=== PATIENT | female | born 2000 | race Caucasian/White ===

== ENCOUNTER 2019-09-14 14:28 | Emergency (ER) | payer BC, MEDICAID ==
[2019-09-14] MEDS ORDERED: Ketorolac 15 MG/ML SDV IVPUSH ONE (15:54)
[2019-09-14] MEDS ORDERED: Prochlorperazine 10 MG/2 ML SDV IVPUSH ONE (15:54)
--- NOTE | 2019-09-14 15:58 | EDM.PDOC ---
ED [facility] GENERAL MEDICAL PROBLEM - General Chief Complaint: Abdominal Pain Stated Complaint: ABDOMINAL PAIN Time Seen by Provider: 09/14/19 15:00 - History of Present Illness INITIAL COMMENTS - FREE TEXT/NARRATIVE: HISTORY AND PHYSICAL: History of present illness: This 19-year-old female with a history of polycystic ovarian syndrome, BMI greater than 35, presents emergency department complaining of left upper quadrant and left lower quadrant pain. States that this began around 8 AM today. Her periods are very irregular secondary to her polycystic ovarian syndrome, she does not remember the last time that she had one, she has not had any urinary symptoms, fever or diarrhea. She reports normal bowel movements previously. Nothing really makes this worse. Nothing really makes it better. Mild intermittent nausea when the pain comes. No other associated signs or symptoms. No other modifying, aggravating or alleviating factors. Review of systems: A 10-point review of systems, other than pertinent positives and negatives as stated per HPI, is otherwise negative. Past medical history: As per history of present illness and as reviewed below otherwise noncontributory. Surgical history: As per history of present illness and as reviewed below otherwise noncontributory. Social history: No reported history of drug or alcohol abuse. Family history: As per history of present illness and as reviewed below otherwise noncontributory. Physical exam: VITAL SIGNS: Reviewed. GENERAL: Pain. Mild distress. HEAD: No signs of head trauma. EYES: Pupils are equal. Extraocular motions intact. EARS: Hearing grossly intact. MOUTH: Oropharynx is normal. NECK: No adenopathy, no JVD. CHEST: Chest with clear breath sounds bilaterally. No wheezes, rales, or rhonchi. CARDIAC: Regular rate and rhythm. Normal S1 and S2, without murmurs, gallops, or rubs. VASCULAR: Peripheral pulses normal and equal in all extremities. ABDOMEN: Soft, mild left upper quadrant and left lower quadrant tenderness, no rebound or guarding, no CVA tenderness, bowel sounds present MUSCULOSKELETAL: Good range of motion of all major joints. Extremities without clubbing, cyanosis or edema. NEUROLOGIC EXAM: Alert and oriented x 3. No focal sensory or motor deficits. Speech normal. Follows commands. PSYCHIATRIC: Mood normal. SKIN: No rash or lesions. Initial Differential Diagnosis & Plan: The differential diagnosis would include appendicitis, cholecystitis, pyelonephritis, pancreatitis, mesenteric infarction, diverticulitis, small bowel obstruction, volvulus, and ACS. We will obtain a CT abdomen pelvis to look for atypical presentation of appendicitis, diverticulitis, and urolithiasis. The patient does not have high risk features for volvulus or acute coronary syndrome. I doubt pancreatitis. The patient does have polycystic ovarian syndrome and is at risk for ovarian rupture. She does not have peritoneal signs, significantly abnormal vital signs , or other signs of acute intra-pelvic or abdominal hemorrhage. I doubt torsion as the patient is relatively comfortable sitting in bed. Definitive disposition and diagnosis as appropriate pending reevaluation and review of above. left lower quadrant Pain Score (Numeric/FACES): 8 - Related Data Allergies Allergy/AdvReac Type Severity Reaction Status Date / Time No Known Allergies Allergy Verified 12/24/14 19:53 Home Meds: Home Meds . [No Known Home Meds] 12/24/14 [History] Past Medical History - Past Health History Medical/Surgical History: Denies Medical/Surgical History Musculoskeletal History: Reports: None Neurological History: Reports: None Psychiatric History: Reports: Depression Endocrine/Metabolic History: Reports: None Hematologic History: Reports: None Oncologic (Cancer) History: Reports: None Dermatologic History: Reports: None Social & Family History - Family History Family Medical History: Noncontributory - Tobacco Use Smoking Status *Q: Never Smoker - Caffeine Use Caffeine Use: Reports: Soda - Recreational Drug Use Recreational Drug Use: No ED ROS GENERAL - Review of Systems Review Of Systems: See Below (noted) ED EXAM, GI/ABD - Physical Exam Exam: See Below (noted) Course - Vital Signs Last Recorded V/S: Last Vital Signs Temp 96.7 F L 09/14/19 14:46 Pulse 73 09/14/19 17:18 Resp 18 09/14/19 14:46 BP 124/69 09/14/19 17:18 Pulse Ox 94 L 09/14/19 17:18 - Orders/Labs/Meds Orders: Active Orders 24 hr Category Date Time Status CULTURE URINE [RM] Stat Lab 09/14/19 16:09 Received Labs: Laboratory Tests 09/14/19 09/14/19 09/14/19 Range/Units 16:07 16:07 16:09 WBC 8.87 (4.0-11.0) K/uL RBC 4.32 (4.30-5.90) M/uL Hgb 12.7 (12.0-16.0) g/dL Hct 39.0 (36.0-46.0) % MCV 90.3 (80.0-98.0) fL MCH 29.4 (27.0-32.0) pg MCHC 32.6 (31.0-37.0) g/dL RDW Std Deviation 42.7 (28.0-62.0) fl RDW Coeff of Faith 13 (11.0-15.0) % Plt Count 327 (150-400) K/uL MPV 9.40 (7.40-12.00) fL Neut % (Auto) 71.8 (48.0-80.0) % Lymph % (Auto) 21.3 (16.0-40.0) % [place] % (Auto) 6.4 (0.0-15.0) % Eos % (Auto) 0.3 (0.0-7.0) % Baso % (Auto) 0.2 (0.0-1.5) % Neut # (Auto) 6.4 H (1.4-5.7) K/uL Lymph # (Auto) 1.9 (0.6-2.4) K/uL [place] # (Auto) 0.6 (0.0-0.8) K/uL Eos # (Auto) 0.0 (0.0-0.7) K/uL Baso # (Auto) 0.0 (0.0-0.1) K/uL Nucleated RBC % 0.0 /100WBC Nucleated RBCs # 0 K/uL Sodium 140 (136-145) mmol/L Potassium 3.6 (3.5-5.1) mmol/L Chloride 102 (98-107) mmol/L Carbon Dioxide 28.9 (21.0-32.0) mmol/L BUN 18 (7.0-18.0) mg/dL Creatinine 0.8 (0.6-1.0) mg/dL Est Cr Clr Drug Dosing 80.57 mL/min Estimated GFR (MDRD) > 60.0 ml/min Glucose 92 (74-106) mg/dL Calcium 9.1 (8.5-10.1) mg/dL HCG, Quant 1.0 mIU/mL Urine Color BROWN Urine Appearance SLT CLOUDY Urine pH 6.0 (5.0-8.0) Ur Specific [place] >= 1.030 (1.001-1.035) Urine Protein 100 H (NEGATIVE) mg/dL Urine Glucose (UA) NEGATIVE (NEGATIVE) mg/dL Urine Ketones TRACE H (NEGATIVE) mg/dL Urine Occult Blood LARGE H (NEGATIVE) Urine Nitrite POSITIVE H (NEGATIVE) Urine Bilirubin SMALL H (NEGATIVE) Urine Ictotest NEGATIVE Urine Urobilinogen 1.0 (<2.0) EU/dL Ur Leukocyte Esterase NEGATIVE (NEGATIVE) Urine RBC TOO NUMEROUS TO CT H (0-2/HPF) Urine WBC 0-4 (0-5/HPF) Ur Epithelial Cells FEW (NONE-FEW) Urine Bacteria 2+ H (NEGATIVE) Meds: Medications Discontinued Medications Generic Name Dose Route Start Last Admin Trade Name Aleida PRN Reason Stop Dose Admin Ketorolac Tromethamine 15 mg 09/14/19 15:54 09/14/19 16:16 Toradol IVPUSH 09/14/19 15:55 15 mg ONETIME ONE Administration Prochlorperazine Edisylate 10 mg 09/14/19 15:54 09/14/19 16:16 Compazine IVPUSH 09/14/19 15:55 10 mg ONETIME ONE Administration - Re-Assessments/Exams Free Text/Narrative Re-Assessment/Exam: 09/15/19 10:38 Before the patient could get her results she eloped from the department. Review of her results shows no need for immediate call back to have the patient get any other required treatment. No significant anemia. CT is essentially normal. My diagnostic impression: 1. Abdominal and pelvic pain unclear etiology 2. Polycystic ovarian syndrome Departure - Departure Time of Disposition: 17:18 Disposition: Eloped 07 Clinical Impression: Abdominal pain - Discharge Information *PRESCRIPTION DRUG MONITORING PROGRAM REVIEWED*: Not Applicable *COPY OF PRESCRIPTION DRUG MONITORING REPORT IN PATIENT PELON: Not Applicable Instructions: Flank Pain, Adult, [id number] Referrals: Franc Ramirez MD [Primary Care Provider] - Forms: ED Department Discharge Sepsis Event Note - Evaluation Sepsis Screening Result: No Definite Risk - Focused Exam Date Exam was Performed: 09/15/19 Time Exam was Performed: 10:38 - My Orders Last 24 Hours: My Active Orders 09/14/19 16:09 CULTURE URINE [RM] Stat - Assessment/Plan Last 24 Hours: My Active Orders 09/14/19 16:09 CULTURE URINE [RM] Stat
[2019-09-14 16:54] LABS: BLOOD UREA NITROGEN,BUN 18 mg/dL (7.0-18.0); CARBON DIOXIDE,CO2 28.9 mmol/L (21.0-32.0); CHLORIDE,CL 102 mmol/L (98-107); GLUCOSE RANDOM 92 mg/dL (74-106); POTASSIUM,K 3.6 mmol/L (3.5-5.1); SODIUM,NA 140 mmol/L (136-145)
--- NOTE | 2019-09-14 17:27 | CT ---
CT abdomen and pelvis Technique: Multiple axial sections were obtained from above the dome of the diaphragm inferiorly through the pubic symphysis. Intravenous and oral contrast was not utilized. Study has been performed as a ureteral stone protocol. Findings: Nonobstructing calculus is noted within the lower left kidney measuring approximately 4 mm. No other abnormal calcifications are seen within the kidneys. Left ureter is mildly prominent. Calcification is noted within the distal left ureter measuring 3.1 mm. This calcification occurs approximately 3.8 cm proximal to the UVJ. No other ureteral calculi are seen. Left ureter is mildly prominent in size compatible with the obstructing calculus. Other findings: Visualized lung bases show nothing acute. Liver contains no focal abnormality. Spleen appears within normal limits. Adrenal glands show no nodule. Pancreas shows no discrete abnormality. Aorta shows no aneurysm. No retroperitoneal adenopathy or mesenteric abnormalities are seen. No pelvic mass or adenopathy is seen. Appendix is seen which is normal in size. No pelvic mass or adenopathy is noted. No free fluid or or inflammatory change is seen. Bone window settings were reviewed which shows no acute osseous finding. Impression: 1. Small nonobstructing calculus within the lower left kidney. 2. Mildly dilated left ureter caused by an obstructing 3.1 mm stone within the distal left ureter located approximately 3.8 cm from the UVJ. 3. No other acute finding is seen on noncontrast CT study of the abdomen and pelvis. Diagnostic code #3 This report was dictated in MDT
[2019-09-14 17:42] VITALS: BP 124/69; PULSE 73
== END 2019-09-14 15:40 | disposition left against medical advice (07) ==
LOC: MW.ED 14:28
DX: R10.12 Left upper quadrant pain (principal); R10.32 Left lower quadrant pain
CPT/HCPCS: 36415; 74176; 80048; 81001; 84702; 85025; 87086; 96374; 96375; 99284; J0780; J1885; 99282

== ENCOUNTER 2022-07-18 16:01 | Emergency (ER) | payer SELFPAY ==
[2022-07-18 16:27] VITALS: BP 135/94
[2022-07-18] MEDS ORDERED: Sodium Chloride 0.9% 2.5 ML Syringe FLUSH PRN (17:01)
[2022-07-18] MEDS ORDERED: Sodium Chloride 0.9% 10 ML Syringe FLUSH PRN (17:01)
[2022-07-18] MEDS ORDERED: Morphine 2 MG/ML SYRINGE IVPUSH STA (17:02)
[2022-07-18] MEDS ORDERED: Ondansetron 4 MG/2 ML SDV IVPUSH STA (17:02)
[2022-07-18] MEDS ORDERED: Sodium Chloride 0.9% 1,000 ML IV STA (17:02)
[2022-07-18 17:54] LABS: CARBON DIOXIDE,CO2 25.6 mmol/L (21.0-32.0); POTASSIUM,K 4.2 mmol/L (3.5-5.1)
[2022-07-18] MEDS ORDERED: cefTRIAXone 1 GM in Sodium Chloride 0.9% 50 ML IV STA (17:58)
[2022-07-18] MEDS ORDERED: Morphine 4 MG/ML Syringe IVPUSH STA (17:58)
[2022-07-18 18:49] VITALS: PULSE 77
== END 2022-07-18 18:48 | disposition home or self-care (01) ==
LOC: MW.ED 16:01
DX: N12 Tubulo-interstitial nephritis, not specified as acute or chronic (principal); Z72.0 Tobacco use
CPT/HCPCS: 36415; 80053; 81001; 81025; 83690; 85025; 87086; 96361; 96365; 96375; 96376; 99284; J0696; J2270; J2405; J3490; J7030

== ENCOUNTER 2022-07-20 11:08 | Emergency (ER) | payer SELFPAY ==
[2022-07-20] MEDS ORDERED: Sodium Chloride 0.9% 2.5 ML Syringe FLUSH PRN (12:31)
[2022-07-20] MEDS ORDERED: Sodium Chloride 0.9% 10 ML Syringe FLUSH PRN (12:31)
[2022-07-20] MEDS ORDERED: Sodium Chloride 0.9% 1,000 ML IV ONE (12:32)
[2022-07-20] MEDS ORDERED: Ondansetron 4 MG/2 ML SDV IVPUSH ONE (12:32)
[2022-07-20] MEDS ORDERED: Levofloxacin/Dextrose 5%-Water 750 MG in Premix Bag 1 BAG IV ONE (12:32)
[2022-07-20] MEDS ORDERED: Ketorolac 30 MG/ML SDV IVPUSH ONE (12:33)
[2022-07-20 13:28] LABS: CARBON DIOXIDE,CO2 26.9 mmol/L (21.0-32.0); POTASSIUM,K 3.9 mmol/L (3.5-5.1)
[2022-07-20 15:21] VITALS: BP 106/65; PULSE 72
== END 2022-07-20 15:20 | disposition home or self-care (01) ==
LOC: MW.ED 11:08
DX: N20.0 Calculus of kidney (principal)
CPT/HCPCS: 36415; 74176; 80053; 81001; 83690; 84703; 85025; 96361; 96365; 96375; 99284; J1885; J1956; J2405; J3490; J7030

== ENCOUNTER 2022-08-15 04:52 | Emergency (ER) | payer SELFPAY ==
[2022-08-15] MEDS ORDERED: Sodium Chloride 0.9% 1,000 ML IV ONE (05:01)
[2022-08-15 05:12] LABS: APPEARANCE,URINE CLOUDY; BASOPHILS PERCENT AUTO 0.5 % (0.0-1.5); BILIRUBIN,URINE NEGATIVE (NEGATIVE); COLOR,URINE YELLOW; EOSINOPHILS ABSOLUTE AUTO 0.1 K/uL (0.0-0.7); EOSINOPHILS PERCENT AUTO 2.1 % (0.0-7.0); GLUCOSE,URINE NEGATIVE (NEGATIVE); HEMATOCRIT 38.7 % (36.0-46.0); KETONES,URINE NEGATIVE (NEGATIVE); LEUKOCYTE ESTERASE,URINE SMALL (NEGATIVE); LYMPHOCYTES ABSOLUTE AUTO 2.9 K/uL (0.6-2.4); LYMPHOCYTES PERCENT AUTO 44.9 % (16.0-40.0); MEAN CORPUSCULAR HEMOGLOBIN 29.7 pg (27.0-32.0); MEAN CORPUSCULAR HGB CONC 33.6 g/dL (31.0-37.0); MEAN CORPUSCULAR VOLUME 88.4 fL (80.0-98.0); MONOCYTES ABSOLUTE AUTO 0.5 K/uL (0.0-0.8); MONOCYTES PERCENT AUTO 8.1 % (0.0-15.0); NEUTROPHILS ABSOLUTE AUTO 2.9 K/uL (1.4-5.7); NEUTROPHILS PERCENT AUTO 44.4 % (48.0-80.0); NITRITE,URINE NEGATIVE (NEGATIVE); NRBC ABSOLUTE 0 K/uL; OCCULT BLOOD,URINE LARGE (NEGATIVE); PH,URINE 5.5 (5.0-8.0); PLATELET COUNT,PLT 313 K/uL (150-400); PROTEIN,URINE TRACE mg/dL (NEGATIVE); RED BLOOD CELL COUNT 4.38 M/uL (4.30-5.90); UROBILINOGEN,URINE 0.2 EU/dL (<2.0); WHITE BLOOD CELL COUNT,WBC 6.53 K/uL (4.0-11.0)
[2022-08-15 05:29] LABS: A/G RATIO 0.9 (0.9-1.6); ALBUMIN 3.6 g/dL (3.4-5.0); BILIRUBIN TOTAL 0.3 mg/dL (0.2-1.0); CALCIUM 9.4 mg/dL (8.5-10.1); CARBON DIOXIDE,CO2 27.4 mmol/L (21.0-32.0); EST CRCL DRUG DOSING (CG) 62.85 mL/min; POTASSIUM,K 4.1 mmol/L (3.5-5.1); PROTEIN TOTAL,TP 7.8 g/dL (6.4-8.2)
[2022-08-15 05:31] LABS: RBC,URINE TOO NUMEROUS TO CT (0-2/HPF)
[2022-08-15 05:32] LABS: BACTERIA,URINE FEW (NEGATIVE); EPITHELIAL CELLS,URINE FEW (NONE-FEW); MUCUS,URINE LIGHT (NONE-MOD)
[2022-08-15] MEDS ORDERED: HYDROmorphone 1 MG/ML Syringe IVPUSH ONE (05:42)
[2022-08-15] MEDS ORDERED: Ketorolac 30 MG/ML SDV IVPUSH ONE (05:42)
[2022-08-15] MEDS ORDERED: Ondansetron 4 MG/2 ML SDV IVPUSH ONE (05:42)
[2022-08-15] MEDS ORDERED: Tamsulosin 0.4 MG Cap.ER PO ONE (07:05)
[2022-08-15 09:15] VITALS: BP 138/78; PULSE 69
== END 2022-08-15 09:36 | disposition home or self-care (01) ==
LOC: MW.ED 04:52
DX: N13.2 Hydronephrosis with renal and ureteral calculous obstruction (principal)
CPT/HCPCS: 36415; 74176; 80053; 81001; 81025; 83690; 85025; 87086; 96361; 96374; 96375; 99284; A9270; J1170; J1885; J2405; J7030

== ENCOUNTER 2024-02-02 05:28 | Emergency (ER) | payer SELFPAY ==
[2024-02-02] MEDS: Sodium Chloride 0.9% 2.5 ML Syringe FLUSH PRN (06:09)
[2024-02-02] MEDS: Ondansetron 4 MG/2 ML SDV IVPUSH ONE (06:09)
[2024-02-02] MEDS: Ketorolac 30 MG/ML SDV IVPUSH ONE (06:09)
[2024-02-02] MEDS: Sodium Chloride 0.9% 10 ML Syringe FLUSH PRN (06:09)
[2024-02-02] MEDS: Sodium Chloride 0.9% 1,000 ML IV ONE (06:09)
[2024-02-02 06:12] LABS: BASOPHILS ABSOLUTE AUTO 0.04 K/uL (0.00-0.20); BASOPHILS PERCENT AUTO 0.5 % (0.0-1.0); EOSINOPHILS ABSOLUTE AUTO 0.04 K/uL (0.00-0.45); EOSINOPHILS PERCENT AUTO 0.5 % (0.0-6.0); HEMOGLOBIN 13.2 g/dL (12.0-16.0); IMMATURE GRAN ABSOLUTE AUTO 0.02 K/uL (0.00-0.05); IMMATURE GRAN PERCENT AUTO 0.2 % (0.0-0.4); LYMPHOCYTES ABSOLUTE AUTO 3.29 K/uL (1.00-4.80); LYMPHOCYTES PERCENT AUTO 37.6 % (24.0-44.0); MEAN CORPUSCULAR HEMOGLOBIN 30.5 pg (28.0-32.0); MEAN CORPUSCULAR HGB CONC 33.8 g/dL (32.0-36.0); MEAN CORPUSCULAR VOLUME 90.1 fL (83.0-99.0); MEAN PLATELET VOLUME 9.3 fL (9.4-12.3); MONOCYTES ABSOLUTE AUTO 0.67 K/uL (0.00-0.80); MONOCYTES PERCENT AUTO 7.6 % (0.0-8.0); NEUTROPHILS PERCENT AUTO 53.6 % (41.0-71.0); PLATELET COUNT,PLT 390 K/uL (150-400); RED BLOOD CELL COUNT 4.33 M/uL (4.10-5.30); WHITE BLOOD CELL COUNT,WBC 8.76 K/uL (3.9-11.3)
[2024-02-02 06:14] LABS: APPEARANCE,URINE SLT CLOUDY; BILIRUBIN,URINE NEGATIVE (NEGATIVE); COLOR,URINE YELLOW; GLUCOSE,URINE NEGATIVE (NEGATIVE); KETONES,URINE NEGATIVE (NEGATIVE); LEUKOCYTE ESTERASE,URINE NEGATIVE (NEGATIVE); NITRITE,URINE NEGATIVE (NEGATIVE); OCCULT BLOOD,URINE MODERATE (NEGATIVE); PH,URINE 5.5 (5.0-8.0); PROTEIN,URINE TRACE mg/dL (NEGATIVE); UROBILINOGEN,URINE 0.2 EU/dL (<2.0)
[2024-02-02 06:27] LABS: BACTERIA,URINE FEW (NEGATIVE); CALCIUM OXALATE CRYSTALS,URINE MODERATE (NEGATIVE); EPITHELIAL CELLS,URINE MODERATE (NONE-FEW); MUCUS,URINE LIGHT (NONE-MOD)
[2024-02-02 06:41] LABS: BILIRUBIN TOTAL 0.5 mg/dL (0.2-1.0); CALCIUM 9.5 mg/dL (8.5-10.1); CARBON DIOXIDE,CO2 26.2 mmol/L (21.0-32.0); CREATININE 1.2 mg/dL (0.6-1.0); EST CRCL DRUG DOSING (CG) 51.92 mL/min; POTASSIUM,K 3.9 mmol/L (3.5-5.1); PROTEIN TOTAL,TP 7.9 g/dL (6.4-8.2)
[2024-02-02] MEDS: Morphine 4 MG/ML Syringe IVPUSH ONE (07:08)
[2024-02-02] MEDS: Iopamidol 755 MG/ML 500 ML Multipack Bottle IVPUSH ONE (07:30)
[2024-02-02 08:28] VITALS: BP 115/48; PULSE 75
== END 2024-02-02 08:42 | disposition home or self-care (01) ==
LOC: MW.ED 05:28
DX: N13.2 Hydronephrosis with renal and ureteral calculous obstruction (principal)
CPT/HCPCS: 36415; 74177; 80053; 81001; 84703; 85025; 87086; 96361; 96374; 96375; 99284; J1885; J2270; J2405; J3490; J7030; Q9967